=== PATIENT | female | born 1990 | race Caucasian/White ===

== ENCOUNTER → 2018-05-18 | Outpatient (REF) | payer OTHER ==
[~2018-05-18] MED LIST: DOXY-350 PO; IBUP1TAB7 PO
[2018-05-21 14:17] LABS: HPV HYBRID CAPTURE II Negative (Negative)
== END ==
LOC: M LAB REF 17:41
PROVIDERS: ATTEND Advanced Practice Midwife
DX: Z01.419 Encounter for gynecological examination (general) (routine) without abnormal findings (principal); Z11.51 Encounter for screening for human papillomavirus (HPV)
CPT/HCPCS: 87624; G0123

== ENCOUNTER → 2018-05-19 | Outpatient (CLI) | payer OTHER ==
[2018-05-19 13:00] LABS: ALBUMIN 3.8 GM/DL (3.2-5.2); ALT/SGPT 22 U/L (12-78); BILIRUBIN,TOTAL 0.6 MG/DL (0.2-1.0); BLOOD UREA NITROGEN 14 MG/DL (7-18); CALCIUM LEVEL 8.6 MG/DL (8.5-10.1); CARBON DIOXIDE LEVEL 29 MEQ/L (21-32); CHLORIDE LEVEL 105 MEQ/L (98-107); CHOLESTEROL LEVEL 213 MG/DL (<200); CHOLESTEROL RISK RATIO 2.265 (<5); CREATININE FOR GFR 0.71 MG/DL (0.55-1.30); FREE T4 1.31 NG/DL (0.76-1.46); GLOMERULAR FILTRATION RATE > 60.0 (>60); GLUCOSE, FASTING 93 MG/DL (70-100); HDL CHOLESTEROL 94 MG/DL (>40); LDL CHOLESTEROL 106 MG/DL (<100); NON-HDL-C 119 MG/DL; POTASSIUM SERUM 4.4 MEQ/L (3.5-5.1); SODIUM LEVEL 139 MEQ/L (136-145); THYROID STIMULATING HORMONE 0.834 uIU/ML (0.358-3.740); TOTAL 25(OH) VITAMIN D 20.2 NG/ML (30.0-100.0); TOTAL PROTEIN 7.3 GM/DL (6.4-8.2); TRIGLYCERIDES LEVEL 66 MG/DL (<150)
[2018-05-19 13:03] LABS: BASO # 0.1 10^3/uL (0.0-0.2); BASO % 0.9 % (0.0-1.0); EOS # 0.2 10^3/uL (0.0-0.50); EOS % 2.8 % (0.0-3.0); HEMATOCRIT 44.6 % (36.0-47.0); HEMOGLOBIN 14.5 g/dl (12.0-15.5); LYMPH # 1.9 10^3/uL (1.5-4.5); LYMPH % 33.4 % (24.0-44.0); MEAN CORPUSCULAR HGB CONC 32.5 g/dl (32.0-36.5); MEAN CORPUSCULAR VOLUME 89.2 fl (80.0-96.0); MONO # 0.6 10^3/uL (0.0-0.8); MONO % 9.7 % (0.0-5.0); NEUTROPHILS # 3.1 10^3/uL (1.8-7.7); NEUTROPHILS % 52.9 % (36.0-66.0); PLATELET COUNT, AUTOMATED 274 10^3/uL (150-450); WHITE BLOOD COUNT 5.8 10^3/uL (4.0-10.0)
== END ==
LOC: M WUC 08:05
PROVIDERS: ATTEND Advanced Practice Midwife
DX: Z01.419 Encounter for gynecological examination (general) (routine) without abnormal findings (principal)

== ENCOUNTER → 2020-03-14 | Outpatient (CLI) | payer OTHER ==
--- NOTE | 2020-03-14 14:58 | REP ---
INDICATION: ANATOMY. COMPARISON: None TECHNIQUE: Real-time sonographic evaluation of the gravid uterus performed. Transabdominal and endovaginal imaging is performed. FINDINGS: Estimated gestational age is19 weeks 6 days, EDC 08/02/2020. Today's measurements indicate appropriate growth. Presentation: Transverse head maternal right side Placenta posterior, grade 0. On endovaginal images the tip of the placenta is at the margin of the internal cervical os, consistent with a marginal placenta previa. Anterior uterine fibroid measures 3.5 cm in diameter. heart rate is recorded at 152 beats per minute. Amniotic fluid is subjectively normal. Closed cervical length is measured at 3.3 cm. Biometry chart: BPD: 46 mm, 19 weeks 5 days, 46th percentile. HC: 172 mm, 19 weeks in 5 days, 45th percentile AC: 141 mm, 19 weeks pain 3 4 the 1st days, 31 percentile Femur length: 19 mm, 4 weeks days, 40th percentile HC to AC ratio: 1.22, normal range 1.06-1.25. Estimated weight: I have 298g, 26th percentile. anatomy: Cranium: Grossly normal Lateral Ventricles/Choroid Plexus: Grossly normal Posterior Fossa/Cerebellum: Grossly normal Nose/lips/profile: Not well seen due to position Four chamber heart: Not well seen due to position Right ventricular outflow tract: Not well seen due to position Left ventricular outflow tract: Not well seen due to position Left-sided stomach: Grossly normal Kidneys: Grossly normal Bladder: Grossly normal Cord Insertion: Grossly normal 3 vessel cord: Grossly normal Spine: Grossly normal IMPRESSION: Viable single intrauterine gestation as above. <Electronically signed by Cecil Jackson > 03/14/20 [id number]
== END ==
LOC: M WHC 12:47
PROVIDERS: ATTEND Advanced Practice Midwife
DX: O44.32 Partial placenta previa with hemorrhage, second trimester (principal); Z3A.19 19 weeks gestation of pregnancy

== ENCOUNTER → 2020-04-11 | Outpatient (CLI) | payer OTHER ==
[~2020-04-11] MED LIST changes: +NEOM1SUS14; +PRENTAB53 PO
--- NOTE | 2020-04-17 18:00 | REP ---
INDICATION: F/U ANATOMY - HEART/VOTS/FACE COMPARISON: 03/14/2020 TECHNIQUE: Transabdominal obstetrical ultrasound with color Doppler evaluation. FINDINGS: Examination demonstrates a single live intrauterine in breech presentation. motion is identified by technologist. Grade 1 placenta is noted posterior and low lying less than 2 cm from the closed internal os. Cervix measures 4.1 cm in length and appears closed.. Gestational age by LMP 23 weeks 6 days with NOLA 08/02/2020. Gestational age by current measurements 23 weeks 5 days with NOLA 08/03/2020. FHR equals 160 beats per minute. Estimated weight 647 grams (45thpercentile). Anatomical assessment demonstrates normal structures including cranium, choroid plexus, cavum, cerebellum/posterior fossa, facial features, lungs, ventricular outflow tracts, diaphragm, stomach, cord insertion/three-vessel cord, kidneys/bladder, spine, and extremities. Four-chamber heart views demonstrate echogenic focus in the left cardiac ventricle likely prominent chordae tendineae. IMPRESSION: 1. Low lying placenta with a closed internal os. 2. Echogenic focus in the left cardiac ventricle likely prominent chordae tendineae. In conjunction with prior examination the remainder of the anatomical assessment is complete and normal. <Electronically signed by Vladimir Bailey > 04/17/20 [id number]
== END ==
LOC: M WHC 15:20
PROVIDERS: ATTEND Obstetrics & Gynecology
DX: Z36.2 Encounter for other antenatal screening follow-up (principal); O99.212 Obesity complicating pregnancy, second trimester; Z3A.23 23 weeks gestation of pregnancy

== ENCOUNTER → 2020-05-14 | Outpatient (CLI) | payer OTHER ==
[2020-05-14 13:56] LABS: HEMATOCRIT 39.5 % (36.0-47.0); HEMOGLOBIN 12.7 g/dl (12.0-15.5); MEAN CORPUSCULAR HEMOGLOBIN 28.7 pg (27.0-33.0); MEAN CORPUSCULAR HGB CONC 32.2 g/dl (32.0-36.5); MEAN CORPUSCULAR VOLUME 89.4 fl (80.0-96.0); PLATELET COUNT, AUTOMATED 254 10^3/uL (150-450); RED BLOOD COUNT 4.42 10^6/uL (4.00-5.40); WHITE BLOOD COUNT 11.5 10^3/uL (4.0-10.0)
== END ==
LOC: M LAB 11:52
PROVIDERS: ATTEND Advanced Practice Midwife
DX: O99.212 Obesity complicating pregnancy, second trimester (principal); Z3A.00 Weeks of gestation of pregnancy not specified

== ENCOUNTER → 2020-06-21 | Outpatient (CLI) | payer OTHER ==
--- NOTE | 2020-06-21 13:32 | REP ---
INDICATION: PARTIAL PLACENTA PREVIA. COMPARISON: 04/11/2020. TECHNIQUE: Real-time sonographic evaluation of gravid uterus performed utilizing transabdominal and endovaginal technique. FINDINGS: There is a single living intrauterine gestation. The estimated gestational age is 34 weeks 0 days EDC 08/02/2020. position is breech. Placenta is posterior and grade 1. There is no placenta previa. heart rate 133 beats per minute. Amniotic fluid within normal limits, AURELIO 16.0, normal range 8.1-24.8. Cervix is closed and measures 4.0 cm in length. IMPRESSION: No evidence of placenta previa. <Electronically signed by Cecil Jackson > 06/21/20 [id number]
== END ==
LOC: M WHC 12:30
PROVIDERS: ATTEND Advanced Practice Midwife
DX: O44.23 Partial placenta previa NOS or without hemorrhage, third trimester (principal); Z3A.34 34 weeks gestation of pregnancy

== ENCOUNTER → 2020-07-05 | Outpatient (REF) | payer OTHER | LOC: M SFHCWAGY 17:01 | PROVIDERS: ATTEND Advanced Practice Midwife | DX: Z36.85 Encounter for antenatal screening for Streptococcus B (principal); Z3A.36 36 weeks gestation of pregnancy ==

== ENCOUNTER → 2020-08-02 | Outpatient (CLI) | payer OTHER | LOC: M LABSMTC 14:19 | PROVIDERS: ATTEND Specialist | DX: Z11.52 Encounter for screening for COVID-19 (principal) ==

== ENCOUNTER 2020-08-06 13:27 | Inpatient (IN) | payer OTHER ==
[~2020-08-06] VITALS: Ht 167.6 cm; Wt 106.9 kg
[2020-08-06] VITALS (39 sets, daily range): BP systolic 98–144; BP diastolic 55–98
[2020-08-06] MEDS ORDERED: LACTATED RINGER'S 1000 ML IV STA (14:02)
[2020-08-06] MEDS ORDERED: METHYLERGONOVINE MALEATE 0.2 MG/ML VIAL (J2210) IM PRN (14:05)
[2020-08-06] MEDS ORDERED: OXYTOCIN DRIP 30 UNITS in IV 1 EA IV PRN (14:05)
[2020-08-06] MEDS ORDERED: CARBOPROST TROMETHAMINE 250 MCG/ML AMP IM PRN (14:05)
[2020-08-06] MEDS ORDERED: LIDOCAINE 1% MDV 20ML VIAL INFIL PRN (14:05)
[2020-08-06] MEDS ORDERED: miSOPROStol 50MCG 1/2 TABLET PO ONE (14:37)
[2020-08-06 14:59] LABS: HEMATOCRIT 43.5 % (36.0-47.0); HEMOGLOBIN 14.1 g/dl (12.0-15.5); MEAN CORPUSCULAR HEMOGLOBIN 28.9 pg (27.0-33.0); MEAN CORPUSCULAR HGB CONC 32.4 g/dl (32.0-36.5); MEAN CORPUSCULAR VOLUME 89.1 fl (80.0-96.0); PLATELET COUNT, AUTOMATED 273 10^3/uL (150-450); RED BLOOD COUNT 4.88 10^6/uL (4.00-5.40); WHITE BLOOD COUNT 13.8 10^3/uL (4.0-10.0)
[2020-08-06 15:25] LABS: ALT/SGPT 20 U/L (12-78); BILIRUBIN,TOTAL 0.2 MG/DL (0.2-1.0); GLOMERULAR FILTRATION RATE > 60.0 (>60); LDH LACTATE DEHYDROGENASE 198 U/L (84-246); URIC ACID 3.4 MG/DL (2.6-6.0)
[2020-08-06 15:48] LABS: TOTAL PROTEIN,RANDOM URINE 26.7 MG/DL (0.0-12.0)
--- NOTE | 2020-08-06 16:15 | HPEPDOC ---
Obstetrical History & Physical General Date of Admission August 06, 2020 at 13:27 Primary Care Physician: MOLLY GRIFFIN CNM History of Present Illness Evie is a 30-year-old female who is a at 40.4 weeks gestation with an NOLA of 08/02/20 based off of her LMP. She initiated care in her first trimester of . Her has been complicated by a marginal placental previa that has resolved, obesity, and an anterior uterine fibroid. She presented to L&D for an elective IOL at 40+ weeks gestation and found to have some slightly elevated BPs. She denies preeclamptic symptoms. She reports active movement. Denies vaginal bleeding, leaking of fluid or contractions. 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 Marital Status: Family situation: Spouse/partner home Psychosocial History: No pertinent psych hx * Smoker: non-smoker Alcohol: Denies Drugs: denies Abuse Violence Screening Have you been hit/kicked/slapp: No Have you been sexually assault: No Allergies Coded Allergies: No Known Drug Allergies (Verified Allergy, Unknown, 04/06/20) Medications Scheduled Doxycycline Monohydrate (Doxycycline) 100 Mg Cap, 100 MG PO BID Vit,Calc76/Iron/Folic (Prenatabs Rx Tablet) 1 Each Tablet, 1 TAB PO DAILY Scheduled PRN Ibuprofen (Ibuprofen) 800 Mg Tab, 800 MG PO Q8HP PRN for PAIN Miscellaneous Medications Neomycin/Polymyxin B/Dexametha (Vnhwko-Jdrrk-Rwfnnjgr Eye Drop) 5 Ml Drops.susp Physical Examination Physical Examination GENERAL: Alert and oriented times three. BREAST: . ABDOMEN: Gravid and non-tender to touch. FETUS: Is vertex (VTX) by sterile vaginal examination (SVE), fetus is vertex (VTX) by Jose. LUNGS: Clear to auscultation (CTA). EXTREMITIES:+1 Pitting edema in feet and ankles. No clonus. Deep tendon reflexes (DTRs) + 2. Vital Signs/I&O Vital Signs Date Time Temp Pulse Resp B/P (MAP) Pulse Ox O2 Delivery O2 Flow Rate FiO2 08/06/20 14:56 97 140/98 (112) 08/06/20 13:46 98.2 16 Laboratory Data 24H LABS Laboratory Tests 2 08/06/20 13:34: Serology Scanned Report Hepatitis B Testing 08/06/20 14:49: Nucleated Red Blood Cells % (auto) 0.0, Glomerular Filtration Rate > 60.0, Uric Acid 3.4, Total Bilirubin 0.2, Aspartate Amino Transf (AST/SGOT) 18, Alanine Aminotransferase (ALT/SGPT) 20, Lactate Dehydrogenase 198 08/06/20 15:07: CBC/BMP Laboratory Tests 08/06/20 14:49 Urine Culture: No Growth Pertinent Laboratoy Data Blood Type: O+ RBC Antibody Screen: Negative HIV: Negative Hepatitis B: Negative Hepatitis C: Negative Rapid Plasma Reagin: Nonreactive Rubella: Immune Chlamydia/Gonorrhea: Negative Group B Streptococcus: Negative Glucose Tolerance Test: 112 Vaginal Examination Dilation: 3 cm Effacement: other (75%) Station: -1 Cervical Consistency: Soft Cervical Position: Anterior Presentation: Cephalic presentation Position: Vertex (occiput) Assessment Heart Rate (FHR): 130 Variability: Moderate Accelerations: Positive Decelerations: None Tocometer Contractions: Yes Frequency: irregular Multi-drug resistant Organism: No history of MDRO Assessment/Plan Assessment IUP at 40.4 weeks gestation rule out GHTN vs preeclampsia Category I FHR tracing GBS negative elective induction of labor Plan Admit to L&D. OOB ad magi Diet: regular then switch to clears once IV Pitocin has been started. Group B Streptococcus (GBS) negative. Labs and intravenous (IV) per unit protocol. Counseled on Cytotec, purcell bulb and IV Pitocin for induction of labor (IOL). Cytotec ordered and to be started. Anesthesia consult per patient's request. Lactated Ringers (LR): Bolus 800 mL prior to epidural, then at 125 mL/hr. Anticipate cervical ripening. C-S as appropriate. MOLLY GRIFFIN CNM August 06, 2020 16:15
[2020-08-06] MEDS ORDERED: OXYTOCIN DRIP 30 UNITS in IV 1 EA IV SCH (19:40)
--- NOTE | 2020-08-06 19:43 | IPNPDOC ---
Obstetrical Progress Note Date of Service August 06, 2020 Subjective Patient reports she feels moderate menstrual cramps. Objective Vital Signs Date Time Temp Pulse Resp B/P (MAP) Pulse Ox O2 Delivery O2 Flow Rate FiO2 08/06/20 18:56 111 16 143/90 (107) 08/06/20 18:02 97.9 Assessment Heart Rate (FHR): 130 Variability: Moderate Accelerations: Positive Decelerations: None Heart Rate Tracing: Category I Tocometer Contractions: Yes Frequency: regular Sterile Vaginal Examination Dilation: 4 cm Effacement (%): other (75%) Station: -1 Cervical Consistency: Soft Cervical Position: Anterior Postion/Presentation: Cephalic presentation Assessment and Plan Status: Reassuring Group B Streptococcus: Negative Anticipate: Vaginal Delivery Additional Comments Reviewed diagnosis of GHTN due to slightly elevated BPs. IV Pitocin to be started per order. Patient reports she does desire an epidural after she starts to get uncomfortable. MOLLY GRIFFIN CNM August 06, 2020 19:43
[2020-08-06] MEDS: LR 1,000 ML IV SCH (19:49)
[2020-08-06] MEDS ORDERED: FENTANYL 2MCG/ML ROPIVACAINE 0.2% IN 0.9% NACL 100ML IVBAG As Ordered ONE (21:03)
[2020-08-06] MEDS ORDERED: diphenhydrAMINE 50MG/ML VIAL (J1200) IV PRN (22:02)
[2020-08-06] MEDS ORDERED: LACTATED RINGER'S 1000 ML IV PRN (22:02)
[2020-08-06] MEDS ORDERED: EPIDURAL COMMENT XX SCH (22:02)
[2020-08-06] MEDS ORDERED: NALOXONE INJ 0.4MG/1ML VIAL (J2310 PER 1MG) IV PRN (22:02)
[2020-08-06] MEDS ORDERED: REFRIGERATOR IV KEYS XX PRN (22:02)
[2020-08-06] MEDS ORDERED: EPIDURAL/PCA KEYS XX PRN (22:02)
[2020-08-06] MEDS ORDERED: ONDANSETRON 4MG/2ML VIAL IV PRN (22:02)
[2020-08-06] MEDS ORDERED: ePHEDrine SULFATE 25 MG/5 ML(5MG/ML) SYRINGE IV PRN (22:02)
[2020-08-06] MEDS ORDERED: ePHEDrine SULFATE 25 MG/5 ML(5MG/ML) SYRINGE As Ordered ONE (22:11)
[2020-08-06] MEDS: FENTANYL/ROPIVACAINE/NACL BAG 100 ML EPIDURAL SCH (22:30)
[2020-08-07] VITALS (28 sets, daily range): BP systolic 88–141; BP diastolic 50–81
--- NOTE | 2020-08-07 04:03 | IPNPDOC ---
Obstetrical Progress Note Date of Service August 07, 2020 Subjective Patient reports she is comfortable with her epidural. Objective Vital Signs Date Time Temp Pulse Resp B/P (MAP) Pulse Ox O2 Delivery O2 Flow Rate FiO2 08/07/20 02:46 100 16 92/55 (67) 08/07/20 02:44 99.4 Assessment Heart Rate (FHR): 130 Variability: Moderate Accelerations: Positive Decelerations: None Heart Rate Tracing: Category I Tocometer Contractions: Yes Frequency: regular Sterile Vaginal Examination Dilation: 6 cm (6-7 cm) Effacement (%): 90% Station: -1 Cervical Consistency: Soft Cervical Position: Anterior Postion/Presentation: Cephalic presentation Assessment and Plan Age: 30 : 2 Term: 0 Pre-term: 0 Abortions: 1 Livin EGA at Admission: 40.4 Status: Reassuring Group B Streptococcus: Negative Anticipate: Vaginal Delivery Additional Comments IV Pitocin at 8 mu/min MOLLY GRIFFIN CNM August 07, 2020 04:03
[2020-08-07] MEDS: LR 1,000 ML IV SCH (05:01)
[2020-08-07] MEDS: FENTANYL/ROPIVACAINE/NACL BAG 100 ML EPIDURAL SCH (06:20)
[2020-08-07] MEDS ORDERED: METHYLERGONOVINE MALEATE 0.2 MG TAB PO PRN (10:00)
[2020-08-07] MEDS ORDERED: IBUPROFEN 600MG TAB PO PRN (10:00)
[2020-08-07] MEDS ORDERED: ANUSOL HC CREAM 30GM TOP PRN (10:00)
[2020-08-07] MEDS ORDERED: RHOGAM 300 MCG (1500 IU) INJ (J2790) IM SCH (10:00)
[2020-08-07] MEDS ORDERED: DOCUSATE SODIUM 100MG CAPSULE PO PRN (10:00)
[2020-08-07] MEDS ORDERED: ACETAMINOPHEN TAB 650MG DOSE (2X325MG) PO PRN (10:00)
[2020-08-07] MEDS ORDERED: MEASLES,MUMPS,RUBELLA VACCINE INJ (MMR-II) (90707) SC SCH (10:00)
--- NOTE | 2020-08-07 10:10 | DNPDOC ---
[facility] Delivery Note Delivery Note DATE OF DELIVERY: 08/07/20 at 0905 PREDELIVERY DIAGNOSIS: 40-4/7 weeks' gestation and induction. POST DELIVERY DIAGNOSIS: Delivered. PROCEDURE: Spontaneous vaginal delivery. SOIL SCIENCE TEACHER: Molly Shipman CNM, [place] ANESTHESIA: epidural. ESTIMATED BLOOD LOSS: 450 mL. FINDINGS: 7 pounds 8 ounces; 3410 grams; female , Score 9/9, GHTN diagnosed with admission. DELIVERY SUMMARY: Evie is a 30-year-old female who is now a who presented to L&D for an elective induction of labor. She was found to have a few slightly elevated BPs and diagnosed with GHTN. She received Cytotec and IV Pitocin for induction of labor. She requested an epidural for pain management. Evie progressed to fully dilated at 0723. she pushed to a living female in the OA position with restitution to LOT. The anterior shoulder delivered with ease and the corpus immediately followed. The baby was placed on the maternal abdomen active and crying. The cord was clamped after 2 minutes and cut by the FOB. A 3-vessel cord was noted. The placenta delivered intact at 0912. Uterine hemostasis was achieved via rapid infusion of IV Pitocin, fundal massage and IM methergine. Her vagina, cervix and perineum was inspected and found to have a first degree perineal laceration and a left vaginal wall abrasion with an area that was pumping blood. Both areas were repaired with a 3.[address]-1. Hemostasis was achieved. They plan on naming her Marissa and she plans on jeb stfeeding. Both mom and baby are in stable condition. All counts of instruments and sponges are correct. MOLLY SHPIMAN CNM August 07, 2020 10:10
[2020-08-07] MEDS: PRENATAL VITAMINS CHEWABLE TABLET PO SCH (10:53)
[2020-08-07] MEDS: IBUPROFEN 800 MG TAB PO PRN (10:57)
[2020-08-07] MEDS: ACETAMINOPHEN 500 MG TAB PO PRN (23:03)
[2020-08-08] MEDS: IBUPROFEN 800 MG TAB PO PRN ×2 (05:13→15:12)
[2020-08-08 05:54] VITALS: BP 115/64
[2020-08-08] MEDS: PRENATAL VITAMINS CHEWABLE TABLET PO SCH (08:31)
[2020-08-08 18:00] VITALS: BP 119/70
[2020-08-08] MEDS: DIBUCAINE 1% OINTMENT 30GM TOP PRN (19:34)
[2020-08-09] MEDS: IBUPROFEN 800 MG TAB PO PRN ×2 (00:09→09:01)
[2020-08-09 06:00] VITALS: BP 108/54
[2020-08-09] MEDS: PRENATAL VITAMINS CHEWABLE TABLET PO SCH (09:00)
[2020-08-09] MEDS: ACETAMINOPHEN 500 MG TAB PO PRN (11:27)
[2020-08-09] MEDS: DIBUCAINE 1% OINTMENT 30GM TOP PRN (11:28)
== END 2020-08-09 12:10 | disposition home or self-care (01) | DRG 807 ==
LOC: M LDI 13:27 → M OBS 08-07 13:32
PROVIDERS: ADMIT Advanced Practice Midwife; ATTEND Advanced Practice Midwife
PROC: 3E0P7GC Introduction of Other Therapeutic Substance into Female Reproductive, Via Natural or Artificial Opening (ICD-10-PCS; 2020-08-06)
PROC: 10E0XZZ Delivery of Products of Conception, External Approach (ICD-10-PCS; principal; 2020-08-07)
PROC: 0HQ9XZZ Repair Perineum Skin, External Approach (ICD-10-PCS; 2020-08-07)
DX: O48.0 Post-term pregnancy (principal); Z37.0 Single live birth; Z3A.40 40 weeks gestation of pregnancy; O99.214 Obesity complicating childbirth; E66.9 Obesity, unspecified; O24.429 Gestational diabetes mellitus in childbirth, unspecified control; O70.0 First degree perineal laceration during delivery

== ENCOUNTER → 2021-10-15 | Outpatient (CLI) | payer OTHER ==
[2021-10-15 14:06] LABS: BASO % 0.6 % (0.0-1.0); EOS # 0.1 10^3/uL (0.0-0.5); EOS % 1.8 % (0.0-3.0); HEMATOCRIT 44.3 % (36.0-47.0); HEMOGLOBIN 14.8 g/dl (12.0-15.5); LYMPH # 1.8 10^3/uL (1.5-5.0); LYMPH % 25.1 % (24.0-44.0); MEAN CORPUSCULAR HEMOGLOBIN 28.9 pg (27.0-33.0); MEAN CORPUSCULAR HGB CONC 33.4 g/dl (32.0-36.5); MEAN CORPUSCULAR VOLUME 86.5 fl (80.0-96.0); MONO # 0.5 10^3/uL (0.0-0.8); MONO % 7.6 % (2.0-8.0); NEUTROPHILS # 4.6 10^3/uL (1.5-8.5); NEUTROPHILS % 64.6 % (36.0-66.0); PLATELET COUNT, AUTOMATED 259 10^3/uL (150-450); RED BLOOD COUNT 5.12 10^6/uL (4.00-5.40); WHITE BLOOD COUNT 7.1 10^3/uL (4.0-10.0)
[2021-10-15 14:44] LABS: ALBUMIN 3.8 GM/DL (3.2-5.2); ALT/SGPT 85 U/L (12-78); BILIRUBIN,TOTAL 0.6 MG/DL (0.2-1.0); BLOOD UREA NITROGEN 13 MG/DL (7-18); C REACTIVE PROTEIN QUANTITATIV 0.32 MG/DL (0.00-0.30); CALCIUM LEVEL 9.2 MG/DL (8.5-10.1); CARBON DIOXIDE LEVEL 28 MEQ/L (21-32); CHLORIDE LEVEL 106 MEQ/L (98-107); CREATININE FOR GFR 0.72 MG/DL (0.55-1.30); FREE T4 1.14 NG/DL (0.76-1.46); GLOMERULAR FILTRATION RATE > 60.0 (>60); GLUCOSE, FASTING 79 MG/DL (70-100); POTASSIUM SERUM 3.9 MEQ/L (3.5-5.1); RHEUMATOID FACTOR QUANT < 10.0 IU/ML (<15.0); SODIUM LEVEL 138 MEQ/L (136-145); TOTAL PROTEIN 7.2 GM/DL (6.4-8.2)
[2021-10-15 14:45] LABS: HEMOGLOBIN A1c 5.2 %
[2021-10-15 15:36] LABS: ERYTHROCYTE SEDIMENTATION RATE 4 mm/hr (0-20)
[2021-10-18 00:09] LABS: ANA (HEP2) Negative (.); CYCLIC CITRULLINATED PEPTIDE 6 units (0-19)
== END ==
LOC: M PLAIMG 11:39
PROVIDERS: ATTEND Physician Assistant
DX: M25.551 Pain in right hip (principal); M25.552 Pain in left hip; Z68.34 Body mass index [BMI] 34.0-34.9, adult

== ENCOUNTER → 2021-10-17 | Outpatient (REF) | payer OTHER | LOC: M SFHCWAGY 12:29 | PROVIDERS: ATTEND Advanced Practice Midwife | DX: Z12.4 Encounter for screening for malignant neoplasm of cervix (principal) | CPT/HCPCS: 87624; G0123 ==

== ENCOUNTER → 2021-10-17 | Outpatient (CLI) | payer OTHER ==
[2021-10-17 14:09] LABS: IRON (FE) 139 UG/DL (50-170); PERCENT SATURATION 42.6 % (13.2-45.0); RHEUMATOID FACTOR QUANT < 10.0 IU/ML (<15.0); TOTAL IRON BINDING CAPACITY 326 UG/DL (250-450)
[2021-10-17 14:29] LABS: HEPATITIS B SURFACE ANTIBODY POSITIVE (POSITIVE)
[2021-10-17 14:41] LABS: HEPATITIS B SURFACE ANTIGEN NEGATIVE (NEGATIVE)
[2021-10-17 15:08] LABS: HEPATITIS C VIRUS ABY INDEX 0.1 INDEX (<0.8)
[2021-10-19 00:09] LABS: ALPHA 1 ANTITRYPSIN 142 mg/dL (100-188); ANA (HEP2) Negative (.); CYCLIC CITRULLINATED PEPTIDE 5 units (0-19)
== END ==
LOC: M PLALAB 10:16
PROVIDERS: ATTEND Physician Assistant
DX: M25.551 Pain in right hip (principal); M25.552 Pain in left hip; R74.8 Abnormal levels of other serum enzymes; Z68.34 Body mass index [BMI] 34.0-34.9, adult

== ENCOUNTER → 2021-10-24 | Outpatient (CLI) | payer OTHER | LOC: M WHC 07:27 | PROVIDERS: ATTEND Physician Assistant | DX: K76.0 Fatty (change of) liver, not elsewhere classified (principal); R74.8 Abnormal levels of other serum enzymes ==

== ENCOUNTER → 2021-12-10 | Outpatient (CLI) | payer OTHER ==
[2021-12-10 10:57] LABS: HCG, SERUM QUALITATIVE NEGATIVE (NEGATIVE)
== END ==
LOC: M PLALAB 08:11
PROVIDERS: ATTEND Advanced Practice Midwife
DX: N92.6 Irregular menstruation, unspecified (principal)

== ENCOUNTER → 2022-07-10 | Outpatient (CLI) | payer OTHER ==
[~2022-07-10] MED LIST changes: -DOXY-350 PO; +DOXY-444 PO
== END ==
LOC: M PLAIMG 10:53
PROVIDERS: ATTEND Nurse Practitioner Adult Health
DX: M25.559 Pain in unspecified hip (principal)

== ENCOUNTER → 2022-07-29 | Outpatient (CLI) | payer OTHER | LOC: M PLAIMG 14:23 | PROVIDERS: ATTEND Nurse Practitioner Adult Health | DX: M25.559 Pain in unspecified hip (principal); R10.2 Pelvic and perineal pain; R93.89 Abnormal findings on diagnostic imaging of other specified body structures ==

== ENCOUNTER → 2023-01-08 | Outpatient (CLI) | payer OTHER ==
[2023-01-08 14:25] LABS: PERCENT SATURATION 35.2 % (13.2-45.0)
[2023-01-08 14:26] LABS: FOLATE 16.58 NG/ML (>5.4)
[2023-01-08 14:27] LABS: FREE T4 1.24 NG/DL (0.89-1.76); THYROID STIMULATING HORMONE 1.474 uIU/ML (0.55-4.78); TOTAL 25(OH) VITAMIN D 35.9 NG/ML (20.0-100.0)
[2023-01-13 06:11] LABS: ESTROGENS TOTAL 277 pg/mL (.); TESTOSTERONE FREE (DIRECT) 4.9 pg/mL (0.0-4.2); VITAMIN B6,PYRIDOXAL PHOSPHATE 12.4 ug/L (3.4-65.2)
== END ==
LOC: M PLALAB 11:50
PROVIDERS: ATTEND Nurse Practitioner Adult Health
DX: L65.9 Nonscarring hair loss, unspecified (principal); E66.9 Obesity, unspecified; I83.812 Varicose veins of left lower extremity with pain; M25.559 Pain in unspecified hip

== ENCOUNTER → 2023-03-02 | Outpatient (CLI) | payer OTHER | LOC: M RAD 15:28 | PROVIDERS: ATTEND Nurse Practitioner Adult Health | DX: M25.562 Pain in left knee (principal); S83.242A Other tear of medial meniscus, current injury, left knee, initial encounter; X58.XXXA Exposure to other specified factors, initial encounter; Y92.9 Unspecified place or not applicable; Y93.9 Activity, unspecified; Y99.9 Unspecified external cause status ==

== ENCOUNTER → 2023-07-15 | Outpatient (CLI) | payer OTHER | LOC: M RAD 14:49 | PROVIDERS: ATTEND Surgery | DX: I83.812 Varicose veins of left lower extremity with pain (principal); M79.605 Pain in left leg ==

== ENCOUNTER → 2024-07-05 | Outpatient (CLI) | payer OTHER ==
[~2024-07-05] MED LIST changes: +DOXY-440 PO; -DOXY-444 PO
[2024-07-05 18:23] LABS: HCG, SERUM QUALITATIVE POSITIVE (NEGATIVE)
== END ==
LOC: M LAB 17:34
PROVIDERS: ATTEND Obstetrics & Gynecology
DX: Z32.01 Encounter for pregnancy test, result positive (principal)

== ENCOUNTER → 2024-07-07 | Outpatient (CLI) | payer OTHER | LOC: M LAB 16:44 | PROVIDERS: ATTEND Obstetrics & Gynecology | DX: Z32.01 Encounter for pregnancy test, result positive (principal) ==

== ENCOUNTER 2024-07-21 19:04 | Emergency (ER) | payer OTHER ==
[~2024-07-21] VITALS: Ht 167.6 cm; Wt 98.8 kg
[2024-07-21 21:42] LABS: BASO # 0.1 10^3/uL (0.0-0.2); BASO % 0.7 % (0.0-1.0); EOS # 0.1 10^3/uL (0.0-0.5); EOS % 1.3 % (0.0-3.0); HEMATOCRIT 39.4 % (36.0-47.0); HEMOGLOBIN 13.5 g/dl (12.0-15.5); LYMPH # 2.3 10^3/uL (1.5-5.0); LYMPH % 23.1 % (24.0-44.0); MEAN CORPUSCULAR HEMOGLOBIN 28.8 pg (27.0-33.0); MEAN CORPUSCULAR HGB CONC 34.3 g/dl (32.0-36.5); MEAN CORPUSCULAR VOLUME 84.2 fl (80.0-96.0); MONO # 0.8 10^3/uL (0.0-0.8); MONO % 7.9 % (2.0-8.0); NEUTROPHILS # 6.5 10^3/uL (1.5-8.5); NEUTROPHILS % 66.8 % (36.0-66.0); PLATELET COUNT, AUTOMATED 227 10^3/uL (150-450); RED BLOOD COUNT 4.68 10^6/uL (4.00-5.40); WHITE BLOOD COUNT 9.7 10^3/uL (4.0-10.0)
[2024-07-21 22:10] LABS: BLOOD UREA NITROGEN 13 MG/DL (9-23); CALCIUM LEVEL 8.6 MG/DL (8.5-10.1); CARBON DIOXIDE LEVEL 25 MMOL/L (20-31); CHLORIDE LEVEL 105 MMOL/L (98-107); CREATININE FOR GFR 0.57 MG/DL (0.55-1.30); GLOMERULAR FILTRATION RATE > 90.0 (>60); GLUCOSE, FASTING 93 MG/DL (60-100); POTASSIUM SERUM 4.1 MMOL/L (3.5-5.1); SODIUM LEVEL 138 MMOL/L (136-145)
[2024-07-21 22:39] LABS: HCG, SERUM QUANTITATIVE 45214.3 MIU/ML (<4.2)
[2024-07-21 22:48] VITALS: BP 131/80; TEMP 98.6; O2SAT 99
== END 2024-07-22 00:08 | disposition left against medical advice (07) ==
LOC: M ED 19:04
DX: Z53.21 Procedure and treatment not carried out due to patient leaving prior to being seen by health care provider (principal)

== ENCOUNTER → 2024-10-21 | Outpatient (CLI) | payer OTHER | LOC: M WHC 12:51 | PROVIDERS: ATTEND Advanced Practice Midwife | DX: O09.522 Supervision of elderly multigravida, second trimester (principal); Z36.2 Encounter for other antenatal screening follow-up; Z3A.19 19 weeks gestation of pregnancy ==

== ENCOUNTER → 2024-11-14 | Outpatient (CLI) | payer OTHER | LOC: M WHC 07:30 | PROVIDERS: ATTEND Advanced Practice Midwife | DX: O44.40 Low lying placenta NOS or without hemorrhage, unspecified trimester (principal); Z3A.22 22 weeks gestation of pregnancy ==

== ENCOUNTER → 2024-12-31 | Outpatient (CLI) | payer OTHER ==
[2024-12-31 10:35] LABS: PLATELET COUNT, AUTOMATED 213 10^3/uL (150-450)
[2024-12-31 11:05] LABS: GLUCOSE CHALLENGE TEST 1 HOUR 96 MG/DL (LESS THAN 140)
[2024-12-31 11:40] LABS: HIV 1&2 SCREEN NEGATIVE (NEGATIVE)
[2024-12-31 11:48] LABS: HEPATITIS C VIRUS ABY INDEX 0.02 INDEX (<0.8)
[2024-12-31 11:52] LABS: Trichomonas vaginalis (AMP) NOT DETECTED (NEGATIVE)
[2024-12-31 12:15] LABS: GC DNA AMPLIFICATION NEGATIVE (NEGATIVE)
== END ==
LOC: M LAB 08:13
PROVIDERS: ATTEND Obstetrics & Gynecology
DX: Z34.80 Encounter for supervision of other normal pregnancy, unspecified trimester (principal)

== ENCOUNTER → 2025-02-15 | Outpatient (CLI) | payer OTHER | LOC: M WHC 07:23 | PROVIDERS: ATTEND Advanced Practice Midwife | DX: O09.523 Supervision of elderly multigravida, third trimester (principal); Z3A.37 37 weeks gestation of pregnancy ==

== ENCOUNTER → 2025-02-15 | Outpatient (REF) | payer OTHER | LOC: M SFHCWAGY 10:26 | PROVIDERS: ATTEND Obstetrics & Gynecology | DX: Z34.03 Encounter for supervision of normal first pregnancy, third trimester (principal); Z3A.36 36 weeks gestation of pregnancy ==